=== PATIENT | male | born 1995 | race Two or more races ===

== ENCOUNTER 2020-04-02 21:25 | Emergency (ER) | payer MEDICAID, OTHER ==
[~2020-04-02] VITALS: Ht 172.7 cm; Wt 90.7 kg
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
[2020-04-02] MEDS ORDERED: HYDROCODONE/APAP 10/325MG TABLET PO ONE (22:00)
[2020-04-02] MEDS ORDERED: HYDROCODONE/APAP 10/325MG TABLET ONE (22:05)
--- NOTE | 2020-04-02 22:05 | NUR ---
PATIENT TAKEN TO CT.
--- NOTE | 2020-04-02 22:15 | NUR ---
RETURNED FROM CT
--- NOTE | 2020-04-02 22:25 | NUR ---
IS AT BEDSIDE SPEAKING WITH PATIENT DUE TO PATIENT'S REQUEST.
--- NOTE | 2020-04-02 23:02 | NUR ---
Patient discharged to home in stable condition. Written and verbal after care instructions given. Patient verbalizes understanding of instruction.
--- NOTE | 2020-04-02 23:03 | NUR ---
PATIENT IS NOW IN [facility]UST[facility] OF [facility].
--- NOTE | 2020-04-02 23:31 | NUR ---
PATIENT HAS BEEN ARGUING WITH SERGEANT STAFF AND [employer] STAFF SINCE DISCHARGE INSTRUCTIONS PROVIDED.
--- NOTE | 2020-04-02 23:58 | NUR ---
PT LEFT WITH [employer].
[2020-04-03 00:30] VITALS: BP 128/76
== END 2020-04-03 00:31 ==
LOC: ER 21:27
DX: S80.12XA Contusion of left lower leg, initial encounter (principal); S09.8XXA Other specified injuries of head, initial encounter; M25.511 Pain in right shoulder; E66.9 Obesity, unspecified; Z68.30 Body mass index [BMI] 30.0-30.9, adult; Y04.0XXA Assault by unarmed brawl or fight, initial encounter; Y93.89 Activity, other specified; Y92.89 Other specified places as the place of occurrence of the external cause; Y99.8 Other external cause status
CPT/HCPCS: 70450-TC; 73030-TC; 82962-TC